=== PATIENT | female | born 1960 | race Caucasian/White ===

== ENCOUNTER 2016-09-23 18:37 | Emergency (ER) | payer BC ==
[2016-09-23] MEDS ORDERED: ASPIRIN CHEW 81 MG TABLET PO STA (19:15)
[2016-09-23] MEDS ORDERED: ASPIRIN CHEW 81 MG TABLET ONE (19:34)
== END 2016-09-23 21:37 | disposition home or self-care (01) ==
DX: R07.9 Chest pain, unspecified (principal); I51.7 Cardiomegaly; I10 Essential (primary) hypertension
CPT/HCPCS: 36415; 71020; 80053; 83690; 84484; 85025; 93005; 93010; 99283; 99284; A9270

== ENCOUNTER 2018-03-17 12:08 | Outpatient (CLI) | payer BC | END 2018-03-17 12:09 | disposition short-term general hospital (02) | LOC: EMS 12:08 | PROVIDERS: ATTEND Surgery | DX: R00.0 Tachycardia, unspecified (principal); R61 Generalized hyperhidrosis; R42 Dizziness and giddiness | CPT/HCPCS: A0425; A0427 ==

== ENCOUNTER 2018-11-25 15:02 | Outpatient (CLI) | payer BC ==
[2018-11-25 17:38] LABS: CREATININE 0.9 mg/dL (0.4-1.0)
== END 2018-11-25 15:03 | disposition home or self-care (01) ==
LOC: LAB.F 15:02
PROVIDERS: ATTEND Internal Medicine
DX: Z51.81 Encounter for therapeutic drug level monitoring (principal); I48.0 Paroxysmal atrial fibrillation; Z79.01 Long term (current) use of anticoagulants
CPT/HCPCS: 36415; 82565

== ENCOUNTER 2019-06-03 14:12 | Outpatient (CLI) | payer BC ==
[2019-06-03 18:48] LABS: CREATININE 0.9 mg/dL (0.4-1.0)
== END 2019-06-03 14:13 | disposition home or self-care (01) ==
LOC: LAB.S 14:12
PROVIDERS: ATTEND Family Medicine
DX: I48.0 Paroxysmal atrial fibrillation (principal)
CPT/HCPCS: 36415; 82565

== ENCOUNTER 2019-12-06 15:00 | Outpatient (CLI) | payer BC | END 2019-12-06 15:01 | disposition home or self-care (01) | LOC: LAB 15:00 | PROVIDERS: ATTEND Family Medicine | DX: I48.0 Paroxysmal atrial fibrillation (principal) | CPT/HCPCS: 36415; 82565 ==